=== PATIENT | female | born 1990 | race African-American/Black ===

== ENCOUNTER 2017-11-05 17:57 | Emergency (ER) | payer OTHER ==
[2017-11-05 18:09] VITALS: BP 127/75; PULSE 74; TEMP 98; BMI 24.3
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
== END 2017-11-05 20:00 | disposition home or self-care (01) ==
LOC: JERFT 17:57
DX: S00.83XA Contusion of other part of head, initial encounter (principal); Y04.2XXA Assault by strike against or bumped into by another person, initial encounter; Y93.89 Activity, other specified; Y92.038 Other place in apartment as the place of occurrence of the external cause; Y99.0 Civilian activity done for income or pay; Y07.9 Unspecified perpetrator of maltreatment and neglect
CPT/HCPCS: 99281-25